=== PATIENT | male | born 1955 | race Caucasian/White ===

== ENCOUNTER 2023-11-27 12:37 | Observation (INO) ==
[2023-11-27] MEDS: OPTIRAY 320 125ml IV ONE (12:44)
--- NOTE | 2023-11-27 12:57 | CT Scan Report ---
HEAD CT NONCONTRAST CT DOSE: HISTORY: neuro deficit, acute stroke suspected TECHNIQUE: Multiaxial CT images of the head were performed without the use of intravenous contrast. A utomated exposure control was utilized for this study. A dose lowering technique was utilized adheri ng to the principles of ALARA. Comparison: None. Findings: The paranasal sinuses and mastoid air cells are clear. The calvarium and skull base are int act. The ventricles and sulci are within normal limits. There is no mass, hematoma, midline shift, or acute infarct. Cerebellar and bilateral basal ganglia calcifications are noted. Impression: No acute intracranial abnormality. ACT 112: Negative or not required by law. Electronically signed by: Heraclio Rios M.D. 11/27/2023 12:55 PM
--- NOTE | 2023-11-27 13:05 | Emergency Department Note ---
Impression & Plan Stroke-like symptoms ED Provider Note NAME: LIVIER MIKE AGE: 68 SEX: M : 1955 ARRIVES VIA: Ambulance INFORMANT: Patient, ED PROVIDER(S): Reinaldo Rae MD CHIEF COMPLAINT: Stroke alert HPI: This is a 68-year-old male presenting as a stroke alert. Reported the patient was driving today on the highway and noted difficulty in speaking. He noted to have a "aura" migraine type sensation and then had difficulty with speaking. He notes he called EMS and upon arrival he was unable to say basic words. During the EMS evaluation when patient was trying to say "migraine "he ended up saying "Ivan's ". This happened a few more times with different words where he was unable to adequately think of the right word he was right to say. While in route this improved, patient have a slow speech which is new for him. Otherwise he noticed no weakness to his upper or lower extremities. Patient does take Eliquis. Last known well is 11:20 AM, approximately 1 hour prior to EMS call. ROS: See above HPI for pertinent positives & negatives. A total of 10 systems reviewed and were otherwise negative. PAST MEDICAL HISTORY: See Below PAST SURGICAL HISTORY: See Below FAMILY HISTORY: See Below SOCIAL HISTORY: See Below HOME MEDICATIONS: See Below ALLERGIES: See Below VITALS: See Below PHYSICAL EXAMINATION: General: resting comfortably in no acute distress Head: Normocephalic and atraumatic Eyes: Normal inspection, extraocular muscles intact Ear, nose, throat: Normal external exam Neck: Normal range of motion Respiratory: lungs clear to auscultation bilaterally Cardiovascular: Regular rate/rhythm, no murmur GI: soft, nontender, no guarding or rebound Extremities: nontender, moves all extremities Neuro: The patient awake and alert, appropriately conversive, no focal deficits, slight left facial Skin: Warm, dry, and intact MEDICAL DECISION MAKING: This is a 68-year-old male presenting as a stroke alert. Patient expressive aphasia, aura/headache prior to the aphasia. Patient on Eliquis, unable to give tPA. Patient has baseline neurosymptoms including right upper and lower extremity sensation deficits which are from previous stroke. Has a possible new left-sided facial droop otherwise as well as slow speech. Currently no expressive aphasia. Patient is a low NIH score and is not a tPA candidate as previously discussed -Discussed with her she stroke neurologist on-call, she believes based on patient's current history, again not to be candidate and without LVO noted or acute stroke noted on CT imaging, not a candidate for thrombectomy. Can continue with stroke workup. Will treat migraine while working up stroke. -Upon reevaluation patient appears clinically similar, slow speech but otherwise no progressing or symptoms. No clear aphasia. -Laboratories reviewed showing no leukocytosis, no anemia, no clear electrolyte disturbances, LFTs and lipase within normal limits, troponin negative. No UTI noted on urinalysis -Patient admitted to hospitalist service under Dr. Gtz pending further stroke workup Differential diagnosis: Stroke, hemorrhage, migraine ER treatment provided: See below Diagnostics interpreted by me: ECG: ECG independently interpreted by me with atrial fibrillation, rate of 73, left axis deviation, normal CA, intraventricular conduction delay, normal QTc, no ST segment elevations consistent with STEMI criteria, T wave inversions in inferolateral leads Cardiac Monitoring: An order was placed for continuous cardiac monitoring. The monitor shows a rate of 73 with sinus rhythm. Laboratory studies: As stated above and show below. Imaging studies: See below. Past Med/Surg History Medical History (Updated 11/27/23 @ 16:28 by Reinaldo Rae MD) Dry eyes Depression History of stroke Atrial fibrillation CHF (congestive heart failure) Social History Smoking Status: Never smoker Beliefs That Will Affect Care: Spiritual and Cultural Feels Safe at Home: Yes Allergies Allergies Allergy/AdvReac Type Severity Reaction Status Date / Time shellfish derived Allergy Intermediate throat Verified 11/27/23 15:51 edema codeine Allergy Unknown Verified 11/27/23 15:51 crab Allergy Hives Verified 11/27/23 15:51 Home Meds Home Medications Medication Instructions Recorded Confirmed allopurinol 300 mg tablet 300 mg PO QPM 11/27/23 11/27/23 apixaban 5 mg tablet (Eliquis) 5 mg PO BID 11/27/23 11/27/23 cetirizine 10 mg tablet (Zyrtec) 10 mg PO DAILY 11/27/23 11/27/23 empagliflozin 10 mg tablet 1 mg PO QAM 11/27/23 11/27/23 (Jardiance) escitalopram oxalate 20 mg tablet 20 mg PO QAM 11/27/23 11/27/23 fluticasone propionate 50 1 spray intranasal DAILY 11/27/23 11/27/23 mcg/actuation nasal spray,suspension (Flonase Allergy Relief) ibuprofen 200 mg tablet (Advil) 100 - 200 mg PO DAILY 11/27/23 11/27/23 metoprolol succinate 50 mg 50 mg PO QAM 11/27/23 11/27/23 tablet,extended release 24 hr propylene glycol 0.6 % eye drops 1 drp ophthalmic (eye) DIRECTED 11/27/23 11/27/23 (Systane Complete) PRN Dry Eyes sacubitril 24 mg-valsartan 26 mg 1 tab PO BID 11/27/23 11/27/23 tablet (Entresto) simvastatin 20 mg tablet 20 mg PO QPM 11/27/23 11/27/23 spironolactone 25 mg tablet 25 mg PO QAM 11/27/23 11/27/23 Results & Data (ED) Vital Signs Vital Signs - 24 hr 11/27/23 12:49 11/27/23 13:00 11/27/23 13:01 Temperature 36.7 C Temperature Source Temporal Artery Scan Pulse Rate 63 67 66 Pulse Rate from SpO2 Sensor Respiratory Rate 18 20 Respiratory Depth Normal Blood Pressure 100/79 96/70 L Blood Pressure Mean 86 78 Blood Pressure Position Sitting Pulse Oximetry 95 95 Oxygen Delivery Method Room Air Room Air Sepsis Recent Fever Within 48 Hours No Sepsis New/Unexplained Change in Mental Status N/A Sepsis Action Taken by Nursing No Action Required 11/27/23 13:05 11/27/23 13:16 11/27/23 13:30 Temperature Temperature Source Pulse Rate 72 64 61 Pulse Rate from SpO2 Sensor Respiratory Rate 20 22 24 Respiratory Depth Blood Pressure 94/71 L 108/72 91/68 L Blood Pressure Mean 78 84 75 Blood Pressure Position Pulse Oximetry 94 94 95 Oxygen Delivery Method Room Air Room Air Room Air Sepsis Recent Fever Within 48 Hours Sepsis New/Unexplained Change in Mental Status Sepsis Action Taken by Nursing 11/27/23 14:00 11/27/23 14:30 11/27/23 14:43 Temperature Temperature Source Pulse Rate 66 54 L Pulse Rate from SpO2 Sensor 68 66 Respiratory Rate 20 23 Respiratory Depth Blood Pressure 102/70 Blood Pressure Mean 76 Blood Pressure Position Pulse Oximetry 96 95 Oxygen Delivery Method Sepsis Recent Fever Within 48 Hours Sepsis New/Unexplained Change in Mental Status Sepsis Action Taken by Nursing 11/27/23 14:43 11/27/23 15:00 11/27/23 15:30 Temperature Temperature Source Pulse Rate 63 66 68 Pulse Rate from SpO2 Sensor 70 61 67 Respiratory Rate 19 18 18 Respiratory Depth Blood Pressure Blood Pressure Mean Blood Pressure Position Pulse Oximetry 96 95 94 Oxygen Delivery Method Sepsis Recent Fever Within 48 Hours Sepsis New/Unexplained Change in Mental Status Sepsis Action Taken by Nursing 11/27/23 16:00 Temperature Temperature Source Pulse Rate 72 Pulse Rate from SpO2 Sensor 72 Respiratory Rate 18 Respiratory Depth Blood Pressure Blood Pressure Mean Blood Pressure Position Pulse Oximetry 94 Oxygen Delivery Method Sepsis Recent Fever Within 48 Hours Sepsis New/Unexplained Change in Mental Status Sepsis Action Taken by Nursing Laboratory Data 11/27/23 12:55 11/27/23 12:55 Lab Results 11/27/23 11/27/23 Range/Units 12:55 13:20 WBC 6.82 (4.8-10.8) K/ul RBC 4.91 (4.70-6.10) M/uL Hgb 16.3 (14.0-18.0) g/dl Hct 46.5 (42.0-52.0) % MCV 94.7 (80.0-100.0) fL MCH 33.2 (25.0-34.0) pg MCHC 35.1 (32.0-36.0) g/dL RDW Std Deviation 48.8 H (36.4-46.3) fL RDW Coeff of Rahat 14.0 (11.5-14.5) % Plt Count 142 (130-400) K/uL MPV 10.0 (9.4-12.4) fL Immature Gran % (Auto) 0.6 % Neut % (Auto) 64.8 % Lymph % (Auto) 24.0 % Delta % (Auto) 8.9 % Eos % (Auto) 1.3 % Baso % (Auto) 0.4 % Neut # (Auto) 4.41 (1.40-6.50) K/uL Lymph # (Auto) 1.64 (1.20-3.40) K/uL Delta # (Auto) 0.61 H (0.11-0.59) K/uL Eos # (Auto) 0.09 (0.00-0.50) K/uL Baso # (Auto) 0.03 (0.00-0.20) K/uL Immature Gran # (Auto) 0.04 (0.01-0.20) K/uL PT 10.8 (9.0-12.0) Seconds INR 1.0 (0.9-1.1) APTT 29 (21-31) Seconds PTT Ratio 1.0 Sodium 134 L (136-145) mmol/L Potassium 3.9 (3.5-5.1) mmol/L Chloride 105 (98-107) mmol/L Carbon Dioxide 23 (21-32) mmol/L Anion Gap 6 (3-11) BUN 18 (6-23) mg/dl Creatinine 1.09 (0.6-1.4) mg/dl Est Cr Clr Drug Dosing 76.7 ml/min Est GFR ( Amer) 79.3 ml/min Est GFR (Non-Af Amer) 68.4 ml/min BUN/Creatinine Ratio 16.5 (10-20) Glucose 124 H (70-99(Fasting)) mg/dl Calcium 8.8 (8.6-10.3) mg/dl Magnesium 2.2 (1.7-2.4) mg/dl Total Bilirubin 0.7 (0.2-1.0) mg/dl AST 19 (13-39) U/L ALT 23 (7-52) U/L Alkaline Phosphatase 69 (34-104) U/L Troponin I High Sens 4.0 (0-20) pg/ml Total Protein 6.0 (6.0-8.3) gm/dl Albumin 3.7 (3.4-5.0) gm/dl Globulin 2.3 L (2.5-4.0) gm/dl Albumin/Globulin Ratio 1.6 (0.9-2) Urine Color Yellow Urine Appearance Clear (Clear) Urine pH 6.5 (4.5-7.5) Ur Specific [place] 1.021 (1.000-1.030) Urine Protein Negative (Negative) Urine Glucose (UA) 3+ H (Negative) Urine Ketones Negative (Negative) Urine Blood Negative (Negative) Urine Nitrite Negative (Negative) Urine Bilirubin Negative (Negative) Urine Urobilinogen Negative (Negative) Ur Leukocyte Esterase Negative (Negative) Administered Medications Discontinued Medications Diphenhydramine HCl (Diphenhydramine 50 Mg/Ml Vial) 25 mg IV NOW STA Stop: 11/27/23 14:19 Last Admin: 11/27/23 14:38 Dose: 25 mg Documented By: DEJAH Sodium Chloride (Nss) 1,000 mls @ 999 mls/hr IV .Q1H1M ONE Stop: 11/27/23 15:18 Last Admin: 11/27/23 14:38 Dose: 999 mls/hr Documented By: DEJAH Prochlorperazine 10 mg/ (Syringe) 10 mls @ 5 mls/min IV ONE ONE Stop: 11/27/23 14:19 Last Admin: 11/27/23 14:38 Dose: 5 mls/min Documented By: DEJAH Ioversol (Optiray 320 125ml) 116 ml IV ONCE ONE Stop: 11/27/23 12:44 Last Admin: 11/27/23 12:44 Dose: 116 ml Documented By: AKHIL Imaging Data Radiologist's Impression: Head CT 11/27/23 12:[address] DOSE: HISTORY: neuro deficit, acute stroke suspected TECHNIQUE: Multiaxial CT images of the head were performed without the use of intravenous contrast. Automated exposure control was utilized for this study. A dose lowering technique was utilized adhering to the principles of ALARA. Comparison: None. Findings: The paranasal sinuses and mastoid air cells are clear. The calvarium and skull base are intact. The ventricles and sulci are within normal limits. There is no mass, hematoma, midline shift, or acute infarct. Cerebellar and bilateral basal ganglia calcifications are noted. Impression: No acute intracranial abnormality. ACT 112: Negative or not required by law. Electronically signed by: Heraclio Rios M.D. 11/27/2023 12:55 PM Head CTA 11/27/23 12:30 CT angio head w con CLINICAL HISTORY: 68 years-old Male with neuro deficit, acute stroke suspected. Acute stroke like symptoms COMPARISON STUDY: Head CT and CTA neck study is of same day TECHNIQUE: Following the IV administration of 116 cc of Optiray, CT angiogram of the brain was performed from the skull base to the vertex. Images are reviewed in the axial, sagittal, and coronal planes. 3-D MIPS images are created and assessed. IV contrast was administered without complication. All measurements were obtained according to NASCET criteria. A dose lowering technique was utilized adhering to the principles of ALARA. FINDINGS: CT ANGIOGRAM OF THE BRAIN: Calcifications of the dentate nuclei incidentally noted. The imaged bilateral internal carotid arteries are patent. The bilateral anterior and middle cerebral arteries are also patent. The vertebrobasilar system and posterior cerebral arteries are widely patent. There is no aneurysm, high-grade stenosis, or proximal branch occlusion identified. Dural sinuses appear patent. Severe degeneration at C1-C2, notably on the left. Right-sided scleral banding. IMPRESSION: 1. Unremarkable CTA of the head. 2. No abnormal intracranial enhancement. ACT 112: Negative or not required by law. The above report was generated using voice recognition software. It may contain grammatical, syntax or spelling errors. Electronically signed by: Flynn Garcia M.D. 11/27/2023 1:13 PM Neck CTA 11/27/23 12:30 CT ANGIOGRAM OF THE NECK CLINICAL HISTORY: Neurological deficit. Stroke like symptoms. COMPARISON STUDY: No priors. TECHNIQUE: Following the IV administration of 116 of Optiray 320, CT angiogram of the neck was performed from the aortic arch to the skull base. Images are reviewed in the axial, sagittal, and coronal planes. 3-D MIPS images are created and assessed. IV contrast was administered without complication. All measurements were calculated based on NASCET criteria. A dose lowering technique was utilized adhering to the principles of ALARA. CT DOSE: 1358.36 mGy.cm FINDINGS: Thoracic aorta: Visualized portions of the thoracic aorta are normal in caliber. The aortic arch demonstrates standard 3-vessel anatomy. Right carotid arterial system: The right common carotid artery is widely patent, as are the right internal and external carotid arteries. Left carotid arterial system: The left common carotid artery is widely patent, as are the left internal and external carotid arteries. Vertebral arteries: Widely patent bilaterally noting right sided dominance. Subclavian arteries: Widely patent bilaterally. Intracranial vasculature: The visualized intracranial vessels of the skull base are patent. Jugular veins: Widely patent bilaterally. Brain parenchyma: The visualized brain parenchyma the skull base is within normal limits. Lung apices: Partially visualized upper lobe lung parenchyma appears clear. Soft tissues: The visualized pharyngeal soft tissues are normal in appearance noting angiographic phase technique. The oropharyngeal airway appears widely patent. The thyroid gland is mildly enlarged and heterogeneous. The salivary glands are normal in appearance. No cervical lymphadenopathy is seen. A pacemaker is present in the left upper chest wall. Skeletal structures: The skeletal structures are osteopenic. The visualized calvarium at the skull base appears intact. The imaged cervical spine is maintained noting multilevel spondylosis. The patient is status post midline sternotomy. There is chronic posttraumatic deformity of the right clavicle. Sinuses and mastoids: The visualized paranasal sinuses are clear. The mastoid air cells are well pneumatized. IMPRESSION: Unremarkable CT angiogram of the neck. ACT 112: Negative or not required by law. Electronically signed by: Jared Salmeron M.D. 11/27/2023 1:05 PM Discharge Plan Visit Data Chief Complaint: Stroke Alert Stated Complaint: STROKE ALERT ED Provider: Reinaldo Rae Discharge Problem: Stroke-like symptoms Discharge Instructions Interventions: ED Discharge Assessment Last Done: 11/27/23 16:25 Forms Stand Alone Forms: [facility] Inbox[employer] Prescriptions Prescriptions: No Action cetirizine [Zyrtec] 10 mg Tablet 10 mg PO DAILY metoprolol succinate 50 mg tablet extended release 24 hr 50 mg PO QAM spironolactone 25 mg tablet 25 mg PO QAM simvastatin 20 mg tablet 20 mg PO QPM ibuprofen [Advil] 200 mg Tablet 100 - 200 mg PO DAILY allopurinol 300 mg tablet 300 mg PO QPM fluticasone propionate [Flonase Allergy Relief] 50 mcg/actuation [place],Suspension 1 spray INTRANASAL DAILY Rx Instructions: administer into each nostril escitalopram oxalate 20 mg tablet 20 mg PO QAM Systane Complete 0.6 % Drops 1 drp OPHTHALMIC (EYE) DIRECTED PRN (Reason: Dry Eyes) Eliquis 5 mg tablet 5 mg PO BID Jardiance 10 mg tablet 1 mg PO QAM Entresto 24-26 mg tablet 1 tab PO BID Referrals Referrals: PCP,NO [Physician] -
--- NOTE | 2023-11-27 13:07 | CT Scan Report ---
CT ANGIOGRAM OF THE NECK CLINICAL HISTORY: Neurological deficit. Stroke like symptoms. COMPARISON STUDY: No priors. TECHNIQUE: Following the IV administration of 116 of Optiray 320, CT angiogram of the neck was perfor med from the aortic arch to the skull base. Images are reviewed in the axial, sagittal, and coronal p lanes. 3-D MIPS images are created and assessed. IV contrast was administered without complication. A ll measurements were calculated based on NASCET criteria. A dose lowering technique was utilized adh ering to the principles of ALARA. CT DOSE: 1358.36 mGy.cm FINDINGS: Thoracic aorta: Visualized portions of the thoracic aorta are normal in caliber. The aortic arch demo nstrates standard 3-vessel anatomy. Right carotid arterial system: The right common carotid artery is widely patent, as are the right int ernal and external carotid arteries. Left carotid arterial system: The left common carotid artery is widely patent, as are the left internet marketing intern al and external carotid arteries. Vertebral arteries: Widely patent bilaterally noting right sided dominance. Subclavian arteries: Widely patent bilaterally. Intracranial vasculature: The visualized intracranial vessels of the skull base are patent. Jugular veins: Widely patent bilaterally. Brain parenchyma: The visualized brain parenchyma the skull base is within normal limits. Lung apices: Partially visualized upper lobe lung parenchyma appears clear. Soft tissues: The visualized pharyngeal soft tissues are normal in appearance noting angiographic pha se technique. The oropharyngeal airway appears widely patent. The thyroid gland is mildly enlarged an d heterogeneous. The salivary glands are normal in appearance. No cervical lymphadenopathy is seen. A pacemaker is present in the left upper chest wall. Skeletal structures: The skeletal structures are osteopenic. The visualized calvarium at the skull ba se appears intact. The imaged cervical spine is maintained noting multilevel spondylosis. The patient is status post midline sternotomy. There is chronic posttraumatic deformity of the right clavicle. Sinuses and mastoids: The visualized paranasal sinuses are clear. The mastoid air cells are well pneu matized. IMPRESSION: Unremarkable CT angiogram of the neck. ACT 112: Negative or not required by law. Electronically signed by: Jared Salmeron M.D. 11/27/2023 1:05 PM
--- NOTE | 2023-11-27 13:14 | CT Scan Report ---
CT angio head w con CLINICAL HISTORY: 68 years-old Male with neuro deficit, acute stroke suspected. Acute stroke like symptoms COMPARISON STUDY: Head CT and CTA neck study is of same day TECHNIQUE: Following the IV administration of 116 cc of Optiray, CT angiogram of the brain was perfor med from the skull base to the vertex. Images are reviewed in the axial, sagittal, and coronal planes . 3-D MIPS images are created and assessed. IV contrast was administered without complication. All me asurements were obtained according to NASCET criteria. A dose lowering technique was utilized adherin g to the principles of ALARA. FINDINGS: CT ANGIOGRAM OF THE BRAIN: Calcifications of the dentate nuclei incidentally noted. The imaged bilateral internal carotid arteri es are patent. The bilateral anterior and middle cerebral arteries are also patent. The vertebrobasil ar system and posterior cerebral arteries are widely patent. There is no aneurysm, high-grade stenosi s, or proximal branch occlusion identified. Dural sinuses appear patent. Severe degeneration at C1-C2, notably on the left. Right-sided scleral banding. IMPRESSION: 1. Unremarkable CTA of the head. 2. No abnormal intracranial enhancement. ACT 112: Negative or not required by law. The above report was generated using voice recognition software. It may contain grammatical, syntax o r spelling errors. Electronically signed by: Flynn Garcia M.D. 11/27/2023 1:13 PM
[2023-11-27 13:31] LABS: Basophils # (auto) 0.03 K/uL (0.00-0.20); Basophils % (auto) 0.4 %; Eosinophils # (auto) 0.09 K/uL (0.00-0.50); Eosinophils % (auto) 1.3 %; Hematocrit (blood only) 46.5 % (42.0-52.0); Hemoglobin 16.3 g/dl (14.0-18.0); Immature Granulocytes # (auto) 0.04 K/uL (0.01-0.20); Immature Granulocytes % (auto) 0.6 %; Lymphocytes # (auto) 1.64 K/uL (1.20-3.40); Mean Corpuscular Hemoglobin 33.2 pg (25.0-34.0); Mean Corpuscular Hgb Conc 35.1 g/dL (32.0-36.0); Mean Corpuscular Volume 94.7 fL (80.0-100.0); Monocytes # (auto) 0.61 K/uL (0.11-0.59); Monocytes % (auto) 8.9 %; Neutrophils # (auto) 4.41 K/uL (1.40-6.50); Neutrophils % (auto) 64.8 %; Platelet Count 142 K/uL (130-400); RDW Standard Deviation 48.8 fL (36.4-46.3); Red Blood Count 4.91 M/uL (4.70-6.10); White Blood Count 6.82 K/ul (4.8-10.8)
[2023-11-27 13:35] LABS: Appearance Urine Clear (Clear); Bilirubin Urine Negative (Negative); Blood Urine Negative (Negative); Color Urine Yellow; Glucose Urine UA 3+ (Negative); Ketones Urine Negative (Negative); Leukocyte Esterase Urine Negative (Negative); Nitrite Urine Negative (Negative); Protein Urine Negative (Negative); Specific Gravity Urine 1.021 (1.000-1.030); Urobilinogen Urine Negative (Negative); pH Urine 6.5 (4.5-7.5)
[2023-11-27 13:39] LABS: Albumin Globulin Ratio 1.6 (0.9-2); Albumin Level 3.7 gm/dl (3.4-5.0); BUN Creatinine Ratio 16.5 (10-20); Bilirubin,Total 0.7 mg/dl (0.2-1.0); Calcium 8.8 mg/dl (8.6-10.3); Creatinine Clr Calc Pharmacy 76.7 ml/min; Est GFR (African American) 79.3 ml/min; Est GFR (Non-African American) 68.4 ml/min; Globulin 2.3 gm/dl (2.5-4.0); Magnesium 2.2 mg/dl (1.7-2.4); Potassium 3.9 mmol/L (3.5-5.1)
[2023-11-27 13:53] LABS: Partial Thromboplastin Time 29 Seconds (21-31); Prothrombin Time 10.8 Seconds (9.0-12.0)
--- NOTE | 2023-11-27 14:35 | History & Physical Report ---
Date of Service November 27, 2023 Assessment & Plan (1) Stroke-like symptoms: Plan: Visual aura, worsening slurred speech, and expressive aphasia developed around 1100 on 11/27 Not a TNKase candidate given on Eliquis New focal expressive aphasia, however not dysarthric No leukocytosis; afebrile Glucose [address] revealed NAF Head/neck CTA unremarkable Brain MRI ordered, pending; spoke to MRI; due to patient's pacemaker and the need for a radiology nurse present, patient will not be able to get MRI until 11/28 Echocardiogram with bubble study ordered, pending Will hold Eliquis until MRI comes back Keep patient n.p.o. 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 CBC, BMP, fasting lipid panel, A1c (2) CHF (congestive heart failure): Plan: Echocardiogram (as above) Continue Entresto, Jardiance, spironolactone (3) Atrial fibrillation: Plan: Pacemaker placed in November 2022, per patient EKG of undetermined rhythm at 73 bpm; QTc 456 (4) History of stroke: Plan: Left thalamic CVA in 2012 Per patient's , he was on Plavix temporarily in 2011, however this was discontinued when he started on Eliquis (5) Depression: Plan: Continue escitalopram (6) Dry eyes: Plan: Continue Systane drops as needed Plan Disposition: Admit to PCU telemetry Full code Keep n.p.o. pending dysphagia screen, then advance to AHA diet as tolerated VTE PPx: SCDs (hold Eliquis until MRI comes back) History of Present Illness Chief Complaint: Strokelike symptoms Primary Care Provider: Sylvie Schwarz is a pleasant 68-year-old male with PMH of left thalamic CVA in 2011 (with residual right-sided deficits), CHF, atrial fibrillation, depression, gouty arthritis, dry eyes, and HLD. He is presented for strokelike symptoms that developed on 11/27. Patient was in the passenger seat, driving with his (Nydia) to a in [place], when he developed a visual aura, followed by slower, slurred speech and expressive aphasia around 1100 on 11/27. He reports that he could not remember things, such as the name of his doctor. When EMS arrived, he also noted that he was using the wrong words (instead of saying he had a history of migraines, he said he had a history of "microwaves". Of note, patient had a left thalamic stroke in 2011 with residual left facial droop and right-sided neuropathy. He denies any recent injuries to the head or neck. He denies tobacco use, alcohol use, and recreational drug use. Hx of retinal detac hment in right eye. Hx of migraines with aura; patient does not take medications for this, when they come on he says he drinks black coffee and lays down for an hour until they pass. Patient was recently sick with a stomach bug up until Saturday 11/25; he had a low-grade fever (and took some Tylenol) as well as diarrhea which has resolved. Patient worked out yesterday for the first time in a month; walking on a treadmill. He took all of his regular morning medications. No recent change in medications; most recent change was decreasing metoprolol from 100 mg to 50 mg in February 2023 due to dizzy spells. Patient had a pacemaker placed in November 2022, with Dr. Luanne Estrada (electrophysiology). His PCP is Sylvie Watson at [facility]. Patient has been hypotensive in the ED; vitals otherwise stable. ED course: Benadryl 25 mg IV Prochlorperazine 10 mg IV NSS 1000 mL IV ROS: Patient endorses RHODES (like a migraine aura), aura, confusion, L facial droop (which may be residual from last stroke), R-sided numbness/tingling (residual from prior stroke), diarrhea (resolved). Patient denies fever, chills, nightsweats, fainting, neck stiffness, cough, congestion, loss of vision, change in hearing, chest pain, chest palpitations, SOB, cough, abdominal pain, N/V, dysuria, burning with urination, no pain in right/left UE or LE. PMHx: Patient endorses hx of migraines with aura, Marfan's syndrome, and CVA Patient denies [place], DVT/PE, diabetes, or cancer Allergies Allergy/AdvReac Type Severity Reaction Status Date / Time shellfish derived Allergy Intermediate throat Verified 11/27/23 15:51 edema codeine Allergy Unknown Verified 11/27/23 15:51 crab Allergy Hives Verified 11/27/23 15:51 Home Medications Medication Instructions Recorded Confirmed Type allopurinol 300 mg tablet 300 mg PO QPM 11/27/23 11/27/23 History apixaban 5 mg tablet (Eliquis) 5 mg PO BID 11/27/23 11/27/23 History cetirizine 10 mg tablet (Zyrtec) 10 mg PO DAILY 11/27/23 11/27/23 History empagliflozin 10 mg tablet 1 mg PO QAM 11/27/23 11/27/23 History (Jardiance) escitalopram oxalate 20 mg tablet 20 mg PO QAM 11/27/23 11/27/23 History fluticasone propionate 50 1 spray intranasal DAILY 11/27/23 11/27/23 History mcg/actuation nasal spray,suspension (Flonase Allergy Relief) ibuprofen 200 mg tablet (Advil) 100 - 200 mg PO DAILY 11/27/23 11/27/23 History metoprolol succinate 50 mg 50 mg PO QAM 11/27/23 11/27/23 History tablet,extended release 24 hr propylene glycol 0.6 % eye drops 1 drp ophthalmic (eye) DIRECTED 11/27/23 11/27/23 History (Systane Complete) PRN Dry Eyes sacubitril 24 mg-valsartan 26 mg 1 tab PO BID 11/27/23 11/27/23 History tablet (Entresto) simvastatin 20 mg tablet 20 mg PO QPM 11/27/23 11/27/23 History spironolactone 25 mg tablet 25 mg PO QAM 11/27/23 11/27/23 History Past Med/Surg History Medical History (Updated 11/27/23 @ 16:28 by Reinaldo Rae MD) Dry eyes Depression History of stroke Atrial fibrillation CHF (congestive heart failure) Social History Smoking Status: Never smoker Hx Alcohol Use: No Hx Substance Use: No Preferred Language: Maltese Communication Ability: Effective Stone Driller Required: No Beliefs That Will Affect Care: None Current Living Situation: Spouse and Family Current Living Situation Comment: Son is home at this time. Other Information That Helps Us Care for You: No Feels Safe at Home: Yes Safety Concerns: Feels Safe At This Time Assistive Devices: Glasses Review of Systems Review of Systems: See HPI above Physical Exam Physical Exam: General: no acute distress; pleasant affect; non-toxic appearing; well- nourished; cooperative HEENT: normocephalic, atraumatic; no scleral icterus; PERRLA w/ EOMs intact; right-sided nystagmus; moist mucus membrane; vision and hearing grossly intact; hearing aids in place; patient demonstrates the ability to protrude and wiggle tongue; mild left-sided facial droop (which patient reports is residual); eyebrow raise intact and symmetric bilaterally; sensation intact, symmetric in the face bilaterally assessed via light touch Neck: supple; no lymphadenopathy; trachea midline; patient demonstrates the ability to raise shoulders against resistance; patient can rotate neck left and right without dizziness Skin: warm, dry without signs of tenting; no cyanosis; no rashes, bruising, lesions, or erythema noted CV: chest wall NTP; RRR; S1/S2 normal; no murmurs/rubs/gallops; pulses intact and symmetric at radial, DP, and PT Lungs: no acute respiratory distress; symmetrical chest wall expansion; clear breath sounds across all lung wilde w/o adventitious sounds; no wheezing ABD: Soft, NTP; BS present; no rebound/guarding; no ascites; no distention; negative CVA tenderness MSK: no tics or fasciculations; no edema noted in the LEs b/l, nonerythematous; +5/5 sanitarian strength; full active ROM; good strength in the LEs when lifting off the bed supine at the hip Neuro: A&Ox3; normal mood and affect; slurred speech; negative pronator drift; decreased sensation in the right side LEs and UEs compared to the left Results & Data Results & Data Vital Signs (Past 12 Hours) Vital Signs Temp Pulse Resp BP Pulse Ox O2 Del Method 11/27/23 13:30 61 24 91/68 L 95 Room Air 11/27/23 13:16 64 22 108/72 94 Room Air 11/27/23 13:05 72 20 94/71 L 94 Room Air 11/27/23 13:01 66 11/27/23 13:00 67 20 96/70 L 95 Room Air 11/27/23 12:49 36.7 C 63 18 100/79 95 Room Air Laboratory Results Abnormal lab results 11/27/23 11/27/23 Range/Units 12:55 13:20 RDW Std Deviation 48.8 H (36.4-46.3) fL [place] # (Auto) 0.61 H (0.11-0.59) K/uL Sodium 134 L (136-145) mmol/L Glucose 124 H (70-99(Fasting)) mg/dl Globulin 2.3 L (2.5-4.0) gm/dl Urine Glucose (UA) 3+ H (Negative) Diagnostic Findings Head CT 11/27/23 12:[address] DOSE: HISTORY: neuro deficit, acute stroke suspected TECHNIQUE: Multiaxial CT images of the head were performed without the use of intravenous contrast. Automated exposure control was utilized for this study. A dose lowering technique was utilized adhering to the principles of ALARA. Comparison: None. Findings: The paranasal sinuses and mastoid air cells are clear. The calvarium and skull base are intact. The ventricles and sulci are within normal limits. There is no mass, hematoma, midline shift, or acute infarct. Cerebellar and bilateral basal ganglia calcifications are noted. Impression: No acute intracranial abnormality. ACT 112: Negative or not required by law. Electronically signed by: Heraclio Rios M.D. 11/27/2023 12:55 PM Head CTA 11/27/23 12:30 CT angio head w con CLINICAL HISTORY: 68 years-old Male with neuro deficit, acute stroke suspected. Acute stroke like symptoms COMPARISON STUDY: Head CT and CTA neck study is of same day TECHNIQUE: Following the IV administration of 116 cc of Optiray, CT angiogram of the brain was performed from the skull base to the vertex. Images are reviewed in the axial, sagittal, and coronal planes. 3-D MIPS images are created and assessed. IV contrast was administered without complication. All measurements were obtained according to NASCET criteria. A dose lowering technique was utilized adhering to the principles of ALARA. FINDINGS: CT ANGIOGRAM OF THE BRAIN: Calcifications of the dentate nuclei incidentally noted. The imaged bilateral internal carotid arteries are patent. The bilateral anterior and middle cerebral arteries are also patent. The vertebrobasilar system and posterior cerebral arteries are widely patent. There is no aneurysm, high-grade stenosis, or proximal branch occlusion identified. Dural sinuses appear patent. Severe degeneration at C1-C2, notably on the left. Right-sided scleral banding. IMPRESSION: 1. Unremarkable CTA of the head. 2. No abnormal intracranial enhancement. ACT 112: Negative or not required by law. The above report was generated using voice recognition software. It may contain grammatical, syntax or spelling errors. Electronically signed by: Flynn Garcia M.D. 11/27/2023 1:13 PM Neck CTA 11/27/23 12:30 CT ANGIOGRAM OF THE NECK CLINICAL HISTORY: Neurological deficit. Stroke like symptoms. COMPARISON STUDY: No priors. TECHNIQUE: Following the IV administration of 116 of Optiray 320, CT angiogram of the neck was performed from the aortic arch to the skull base. Images are reviewed in the axial, sagittal, and coronal planes. 3-D MIPS images are created and assessed. IV contrast was administered without complication. All measurements were calculated based on NASCET criteria. A dose lowering technique was utilized adhering to the principles of ALARA. CT DOSE: 1358.36 mGy.cm FINDINGS: Thoracic aorta: Visualized portions of the thoracic aorta are normal in caliber. The aortic arch demonstrates standard 3-vessel anatomy. Right carotid arterial system: The right common carotid artery is widely patent, as are the right internal and external carotid arteries. Left carotid arterial system: The left common carotid artery is widely patent, as are the left internal and external carotid arteries. Vertebral arteries: Widely patent bilaterally noting right sided dominance. Subclavian arteries: Widely patent bilaterally. Intracranial vasculature: The visualized intracranial vessels of the skull base are patent. Jugular veins: Widely patent bilaterally. Brain parenchyma: The visualized brain parenchyma the skull base is within normal limits. Lung apices: Partially visualized upper lobe lung parenchyma appears clear. Soft tissues: The visualized pharyngeal soft tissues are normal in appearance noting angiographic phase technique. The oropharyngeal airway appears widely patent. The thyroid gland is mildly enlarged and heterogeneous. The salivary glands are normal in appearance. No cervical lymphadenopathy is seen. A pacemaker is present in the left upper chest wall. Skeletal structures: The skeletal structures are osteopenic. The visualized calvarium at the skull base appears intact. The imaged cervical spine is maintained noting multilevel spondylosis. The patient is status post midline sternotomy. There is chronic posttraumatic deformity of the right clavicle. Sinuses and mastoids: The visualized paranasal sinuses are clear. The mastoid air cells are well pneumatized. IMPRESSION: Unremarkable CT angiogram of the neck. ACT 112: Negative or not required by law. Electronically signed by: Jared Salmeron M.D. 11/27/2023 1:05 PM Code Status & VTE Plan Code Status Full code VTE Prophylaxis Plan VTE Prophylaxis will be ordered: Yes Supervising Physician Co-Signing Physician Notes Patient seen and examined, chart reviewed, case discussed with [] and I agree with the assessment and plan as above except as otherwise noted Labs and images reviewed 68yo M who was driving to a in [place] when he developed sx of aphasia while in the car. Has a hx oc CVA with residual facial droop. Aphasia and confusion is new for him .Most prominent sx was expressive bu tnot receptive aphasia (having trouble finding and using correct words, but without dysarthia). Has a hx of migraines with aura. Did have a visual aura similar to prior with migraines. No visual field cuts, some R gaze bilateral nystagmus which extinguishes. Patient reports he was previously on Plavix after concern for CVA leading to his facial droop, this was stopped in 2018 when his Eliquis was started for A-fib prophylaxis.. At bedside he is clear that his symptoms were expressive dysarthria and difficulty with word salad/word finding, but he had no issues with speech and was not dysarthric per his .. No left or right-sided strength deficits that were new, does have some right-sided paresthesias chronically. At time of bedside reassessment he reports he is tired, but feels 90% back to normal was 10% being just fatigue. Denies recent heart failure exacerbation, but does have a history of CHF on Entresto. Denies chest pain/chest pressure. At bedside assessment speech is fluent, no dysarthria, left facial droop remains present, right sanitarian strength/ankle/dorsiflexion is intact, vision is without field cuts and pupils are equal and reactive to light. Agree with admission diagnosis includes complex migraine and CVA. Patient is not a TNKase candidate regardless of symptoms due to being on Eliquis. This is temporarily held pending MRI results.. CTA does not show any large vessel occlusion. antiplatelet treatment was discussed with neuro, recommended to defer this at time of admission and aspirin/Plavix load was not recommended. Recommend MRI for evaluation of stroke pathology, and if negative can resume Eliquis in 24 hours. Admit for stroke monitoring and workup. Lipid panel pending, Entresto/spironolactone temporarily held pending MRI results for permissive parameters and borderline hypotension. Metoprolol continued for a.m. dosing. Agree with assessment and management above PG Care Time/CCT Total # of Minutes Spent Total Time Spent with Patient: Total time spent is greater than 50% in coordination of care (as documented) at patient's floor/unit and/or counseling patient: [place] [address] INT INP/OBS CARE 3/75MIN Patient Type New Medical Decision Making High Complexity Diagnoses Stroke-like symptoms R29.90 CHF (congestive heart failure) I50.9 Atrial fibrillation I48.91 History of stroke Z86.73 Depression F32.A Dry eyes H04.123
[2023-11-27] MEDS: SODIUM CHLORIDE 0.9% 1,000 ML IV ONE (14:38)
[2023-11-27] MEDS: PROCHLORPERAZINE 10 MG in SYRINGE 8 ML IV ONE (14:38)
[2023-11-27] MEDS: diphenhydrAMINE 50 MG/ML VIAL IV STA (14:38)
[2023-11-27] MEDS ORDERED: ONDANSETRON INJ 2 MG/ML 2 ML VIAL IV PRN (17:14)
[2023-11-27] MEDS ORDERED: PHARMACIST DISCHARGE MED REC CONSULT PRN (17:14)
[2023-11-27] MEDS ORDERED: ACETAMINOPHEN 325 MG TAB PO PRN (17:14)
[2023-11-27] MEDS ORDERED: ARTIFICIAL TEARS OP PRN (17:18)
[2023-11-27] MEDS: SIMVASTATIN 20 MG TAB PO SCH (21:00)
[2023-11-27] MEDS: allopurinoL 300 MG TAB PO SCH (21:00)
[2023-11-27] MEDS ORDERED: VALSARTAN/SACUBITRIL 26/24MG TAB PO SCH (21:00)
[2023-11-28 06:43] LABS: Basophils # (auto) 0.02 K/uL (0.00-0.20); Basophils % (auto) 0.3 %; Eosinophils # (auto) 0.12 K/uL (0.00-0.50); Eosinophils % (auto) 1.6 %; Hemoglobin 16.3 g/dl (14.0-18.0); Immature Granulocytes # (auto) 0.04 K/uL (0.01-0.20); Immature Granulocytes % (auto) 0.5 %; Lymphocytes # (auto) 1.84 K/uL (1.20-3.40); Lymphocytes % (auto) 24.1 %; Mean Corpuscular Hemoglobin 32.9 pg (25.0-34.0); Mean Platelet Volume 10.1 fL (9.4-12.4); Monocytes % (auto) 6.6 %; Neutrophils # (auto) 5.11 K/uL (1.40-6.50); Neutrophils % (auto) 66.9 %; Platelet Count 144 K/uL (130-400); RDW Coefficient of Variation 13.9 % (11.5-14.5); RDW Standard Deviation 50.2 fL (36.4-46.3); Red Blood Count 4.95 M/uL (4.70-6.10); White Blood Count 7.63 K/ul (4.8-10.8)
[2023-11-28 06:52] LABS: BUN Creatinine Ratio 14.8 (10-20); Calcium 8.8 mg/dl (8.6-10.3); Chol HDL Ratio 3.6 (0-5); Creatinine Clr Calc Pharmacy 64.5 ml/min; Est GFR (African American) 65.3 ml/min; Est GFR (Non-African American) 56.3 ml/min; Potassium 4.5 mmol/L (3.5-5.1)
[2023-11-28 07:19] LABS: Estimated Average Glucose 120 mg/dl; Hemoglobin A1C 5.8 % (4.5-5.6)
--- NOTE | 2023-11-28 09:01 | Neurology Consultation ---
Date of Consultation November 28, 2023 Assessment & Plan (1) Stroke-like symptoms: (2) Complicated migraine: Plan 68-year-old male with a history of migraine with aura, ocular migraine, atrial fibrillation on Eliquis, cardiac pacer, presenting with one of his usual migrainous auras yesterday, while on his way to a with his spouse, followed by development of associated aphasia, but without hemiparesis. Initial CTA of the head and neck and CT of the head unremarkable. Thrombolytics not administered as patient on Eliquis. Symptoms resolved this morning. Although I suspect patient's clinical presentation is most consistent with complicated migraine, given his history of prior stroke and atrial fibrillation, recurrent stroke/TIA cannot be excluded. Would recommend MRI of the brain, transthoracic echocardiogram. Consultations with PT/OT/speech therapy. May r esume Eliquis if no evidence of hemorrhage on brain MRI. Would not add an antiplatelet medication at this time. Continue monitoring of patient's blood pressure, his pressure has been running low normal. May continue with metoprolol as prescribed. Patient's lipids appear to be well-controlled with simvastatin, LDL 59 (less than 70). May continue with simvastatin at the current dosage. Patient's hemoglobin A1c is 5.8, marginally elevated but considered increased risk for diabetes mellitus. Will need ongoing monitoring as an outpatient. Patient should probably reestablish with a neurologist as an outpatient, although he is not from this area. He does endorse a history of fairly frequent, recurrent, ocular migraine and he may benefit from a trial of preventative medication, either verapamil, topiramate, or amitriptyline. Please contact me if you have any questions. History of Present Illness Reason for Consultation: stroke like sxs Requesting Physician: Miguel Angel Attending Physician: Sancho Perez MD History of Present Illness The patient is a 68-year-old male who presented to the emergency department yesterday afternoon for further assessment of difficulty speaking. He had been driving to a with his spouse at the time of symptom onset. He reports that his initial symptom was of a visual aura, vision disturbance, that he typically experiences several times per month, lasting 20 to 30 minutes, sometimes followed by low-grade headache. He endorses a history of migraine with aura beginning as a teenager. Lately, his migraine symptoms have consisted of recurring visual aura without much headache, however. Although he initially thought he was having one of his migrainous episodes, he then noticed difficulty speaking which seem to be a new symptom for him. He recalled having difficulty with word finding and making some unusual word substitutions as well. He denied experiencing any difficulty with language comprehension. He does not recall having any associated weakness of the arms or legs or facial droop with this episode. Given the above symptoms, he came to the emergency department for further evaluation. The patient does endorse a history of stroke that occurred in 2011 in the context of a mitral valve replacement surgery done about 2 years prior. History also notable for atrial fibrillation, continues to follow with cardiology affiliated with [facility] and [facility]. He indicates that he has been having runs of atrial fibrillation lately and there are potential plans for an ablation procedure. Patient also has a cardiac pacer. He has been taking Eliquis and has been compliant with this medication. He denies experiencing significant headache with this recent episode. He has been normotensive to hyp otensive in the context of this hospitalization. He had an unremarkable CT of the head and CT angiogram of the head and neck. I did independently review these images. There is evidence of physiologic calcifications within both cerebellar hemispheres in the bilateral basal ganglia and pineal gland. There is no hemorrhage or acute process, no hydrocephalus. No evidence of chronic stroke. No significant vascular lesion identified on CTA of the head or neck. This morning, the patient reports complete resolution of his symptoms. Denies any lingering difficulty with vision, no headache, no difficulty with speech, no new or focal weakness of the limbs. He does indicate that he has some chronic mild sensory disturbance affecting the right arm and leg related to his stroke that occurred in 2011. Allergies Allergy/AdvReac Type Severity Reaction Status Date / Time shellfish derived Allergy Intermediate throat Verified 11/27/23 15:51 edema codeine Allergy Unknown Verified 11/27/23 15:51 crab Allergy Hives Verified 11/27/23 15:51 Home Medications Medication Instructions Recorded Confirmed Type allopurinol 300 mg tablet 300 mg PO QPM 11/27/23 11/27/23 History apixaban 5 mg tablet (Eliquis) 5 mg PO BID 11/27/23 11/27/23 History cetirizine 10 mg tablet (Zyrtec) 10 mg PO DAILY 11/27/23 11/27/23 History empagliflozin 10 mg tablet 1 mg PO QAM 11/27/23 11/27/23 History (Jardiance) escitalopram oxalate 20 mg tablet 20 mg PO QAM 11/27/23 11/27/23 History fluticasone propionate 50 1 spray intranasal DAILY 11/27/23 11/27/23 History mcg/actuation nasal spray,suspension (Flonase Allergy Relief) ibuprofen 200 mg tablet (Advil) 100 - 200 mg PO DAILY 11/27/23 11/27/23 History metoprolol succinate 50 mg 50 mg PO QAM 11/27/23 11/27/23 History tablet,extended release 24 hr propylene glycol 0.6 % eye drops 1 drp ophthalmic (eye) DIRECTED 11/27/23 11/27/23 History (Systane Complete) PRN Dry Eyes sacubitril 24 mg-valsartan 26 mg 1 tab PO BID 11/27/23 11/27/23 History tablet (Entresto) simvastatin 20 mg tablet 20 mg PO QPM 11/27/23 11/27/23 History spironolactone 25 mg tablet 25 mg PO QAM 11/27/23 11/27/23 History Patient History Medical History (Updated 11/28/23 @ 09:22 by Eliud Cole MD) Dry eyes Depression History of stroke Atrial fibrillation CHF (congestive heart failure) Social History Smoking Status: Never smoker Hx Alcohol Use: No Hx Substance Use: No Preferred Language: Persian Communication Ability: Effective Bulk Filler Required: No Beliefs That Will Affect Care: None Current Living Situation: Spouse and Family Current Living Situation Comment: Son is home at this time. Other Information That Helps Us Care for You: No Feels Safe at Home: Yes Safety Concerns: Feels Safe At This Time Assistive Devices: Glasses Review of Systems Constitutional: no fever and no chills Eyes: no blind spots and no diplopia Ear, Nose, Mouth, Throat: no hearing loss Respiratory: no cough and no dyspnea Cardiovascular: + palpitations; no chest pain Gastrointestinal: no nausea and no vomiting Genitourinary: no urinary incontinence Musculoskeletal: no neck pain and no myalgia Integumentary: no rash and no lesions Neurologic: as per Subjective / HPI and + abnormal speech; no localized weakness, no tremor(s), no syncope, no headache(s), no confusion and no memory loss Psychiatric: no depression and no anxiety Hematologic / Lymphatic: no easy bleeding and no easy bruising Exam (Neuro) Constitutional: well developed and well nourished; no acute distress Eyes: normal visual wilde by confrontation, PERRL and EOM intact bilaterally; no nystagmus Neurologic: Oriented to:: Person, Place and Time Memory: Short Term Intact and Remote Intact Attention: Span Intact and Concentration Intact Speech Fluency: negative Dysarthria or Dysfluency Speech Aphasia: negative Aphasia Fund of Knowledge: Current Events, Past History and Vocabulary Cranial Nerves: Normal II, III, IV, , V, VII, VIII, IX, X, XI and XII Motor Strength: Normal Lower Extremities and Normal Upper Extremities Motor Tone: Normal Lower Extremities and Normal Upper Extremities Muscle Bulk/Involuntary Movements: No Involuntary Movements; negative Muscle Atrophy Sensation: Light Touch Intact, Pain/Temperature Intact and Proprioception Intact Coordination: Normal; negative Limited Balance, Dysdiadochokinesia, Finger-Nose Abnormal or Heel-Calloway Abnormal Deep Tendon Reflexes: Rt Triceps: 1+, Lt Triceps: 1+, Rt Biceps: 1+, Lt Biceps: 1+, Rt Brachioradialis: 1+, Lt Brachioradialis: 1+, Rt Patellar: 1+, Lt Patellar: 1+, Rt Ankle: 1+ and Lt Ankle: 1+ Special Tests: negative Babinski Present Details: gait not tested Results & Data Vital Signs (Past 12 Hours) Vital Signs Temp Pulse Resp BP Pulse Ox O2 Del Method 11/28/23 07:35 36.3 C L 83 20 102/70 93 Nasal CPAP 11/28/23 03:20 36.5 C 76 17 95/59 L 92 CPAP 11/27/23 23:21 36.6 C 75 16 92/55 L 96 CPAP Laboratory Results WBC 7.63, hemoglobin 16.3, hematocrit 48.0, platelet count 144, sodium 139, potassium 4.5, BUN 19, creatinine 1.28, glucose 96, hemoglobin A1c 5.8, AST 19, ALT 23, triglycerides 154, cholesterol 124, LDL 59, HDL [address] of the head including CTA of the head and neck are as described in the HPI, I independently reviewed these images. An electrocardiogram revealed a heart rate of 73 bpm, undefined rhythm (A-fib?) Coding Level of Care Code 43301 INT INP/OBS CARE MIN Diagnoses Stroke-like symptoms R29.90 Complicated migraine G43.109 Time Spent (min) 80
--- NOTE | 2023-11-28 09:05 | Hospitalist Progress Note ---
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 Continue simvastatin Speech therapy consulted PT/OT consulted Neurology consulted, rcommendation to hold Plavix load given the patient is on Eliquis(currently not on an antiplatelet drug) Left thalamic CVA in 2011 Per patient's , he was on Plavix temporarily in 2011, however this was discontinued when he started on Eliquis (2) CHF (congestive heart failure): Plan: Echocardiogram , suspect chronic systolic heart faiure or HF improved EF Continue Entresto, Jardiance, spironolactone (3) Atrial fibrillation: Plan: Pacemaker placed in November 2022, per patient EKG seems like afib controlled V Rate (4) Depression: Plan: Continue escitalopram (5) Dry eyes: Plan: Continue Systane drops as needed Plan Full code Admission and Anticipated Discharge Date Admission Date: November 27, 2023 Results & Data Results & Data Vital Signs (Past 12 Hours) Vital Signs Temp Pulse Resp BP Pulse Ox O2 Del Method 11/28/23 07:35 97.3 F L 83 20 102/70 93 Nasal CPAP 11/28/23 03:20 97.7 F 76 17 95/59 L 92 CPAP 11/27/23 23:21 97.9 F 75 16 92/55 L 96 CPAP PG Care Time/CCT Total # of Minutes Spent Total Time Spent with Patient: Total time spent is greater than 50% in coordination of care (as documented) at patient's floor/unit and/or counseling patient: Coding Diagnoses Stroke-like symptoms R29.90 CHF (congestive heart failure) I50.9 Atrial fibrillation I48.91 Depression F32.A Dry eyes H04.123
[2023-11-28] MEDS: VALSARTAN/SACUBITRIL 26/24MG TAB PO SCH (09:24)
[2023-11-28] MEDS: EMPAGLIFLOZIN 10 MG TAB PO SCH (09:26)
[2023-11-28] MEDS: ESCITALOPRAM OXALATE 20 MG TAB PO SCH (09:26)
[2023-11-28] MEDS: SPIRONOLACTONE 25 MG TAB PO SCH (09:26)
[2023-11-28] MEDS: CETIRIZINE HCL 10 MG TABLET PO SCH (09:26)
[2023-11-28] MEDS: FLUTICASONE PROPIONATE NA SPR 16 GM BTL SCH (09:27)
[2023-11-28] MEDS: METOPROLOL SUCC 50MG EXT REL TAB PO SCH (09:28)
--- NOTE | 2023-11-28 10:35 | Pharmacy Report ---
- Date of Service November 28, 2023 - Pharmacy CVA/TIA Medication Review Medications to Prevent Stroke handout has been added to the patients discharge packet. Antiplatelet(s) * Antiplatelet therapy deferred per Neurology due to patient currently on Eliquis. MRI could not be completed due to pacemaker. Cholesterol * High intensity statin deferred due to lipids well controlled on Simvastatin 20 mg (moderate intensity statin). Per Neurology note, continue Simvastatin since LDL = 59 (<70). DVT Prophylaxis * Patient on Eliquis 5 mg BID Therapeutic Anticoagulation * Hx Afib/Aflutter noted, and patient on Eliquis 5 mg BID Type 2 Diabetes * Patient does not have T2DM
--- NOTE | 2023-11-28 13:53 | CT Scan Report ---
CT head/brain wo con CLINICAL HISTORY: 68 years-old Male with STROKE LIKE SX COMPARE CANNOT DO mri. Acute stroke like sym ptoms TECHNIQUE: Multiple axial CT images of the head were obtained without contrast. A dose lowering tech nique was utilized adhering to the principles of ALARA. CT DOSE: 625.8 mGy.cm COMPARISON: 11/27/2023 FINDINGS: No acute intracranial hemorrhage, midline shift, intracranial mass, hydrocephalus, territorial ischem ia or abnormal extra-axial collection. Basal ganglia and dentate nuclei calcifications redemonstrated . Mild involutional changes with suggestion of mild chronic microvascular ischemic disease. The calvarium is intact. Right-sided scleral banding. The paranasal sinuses, mastoid air cells, and m iddle ear cavities are clear. IMPRESSION: No acute intracranial abnormality. ACT 112: Negative or not required by law. The above report was generated using voice recognition software. It may contain grammatical, syntax o r spelling errors. Electronically signed by: Flynn Garcia M.D. 11/28/2023 1:52 PM
[2023-11-28] MEDS ORDERED: STROKE PATIENT DISCHARGE STA (14:50)
[2023-11-28] MEDS: APIXABAN 5 MG TABLET PO SCH (15:10)
[2023-11-28] MEDS: CLOPIDOGREL BISULFATE 75 MG TAB PO ONE (15:36)
--- NOTE | 2023-11-28 16:15 | XCELERA ---
[id number]
--- NOTE | 2023-11-28 16:27 | Discharge Summary ---
Date of Service November 28, 2023 Admission HPI Per Admitting Provider Chong is a pleasant 68-year-old male with PMH of left thalamic CVA in 2011 (with residual right-sided deficits), CHF, atrial fibrillation, depression, gouty arthritis, dry eyes, and HLD. He is presented for strokelike symptoms that developed on 11/27. Patient was in the passenger seat, driving with his (Nydia) to a in [place], when he developed a visual aura, followed by slower, slurred speech and expressive aphasia around 1100 on 11/27. He reports that he could not remember things, such as the name of his doctor. When EMS arrived, he also noted that he was using the wrong words (instead of saying he had a history of migraines, he said he had a history of "microwaves". Of note, patient had a left thalamic stroke in 2011 with residual left facial droop and right-sided neuropathy. He denies any recent injuries to the head or neck. He denies tobacco use, alcohol use, and recreational drug use. Hx of retinal detachment in right eye. Hx of migraines with aura; patient does not take med ications for this, when they come on he says he drinks black coffee and lays down for an hour until they pass. Patient was recently sick with a stomach bug up until Saturday 11/25; he had a low-grade fever (and took some Tylenol) as well as diarrhea which has resolved. Patient worked out yesterday for the first time in a month; walking on a treadmill. He took all of his regular morning medications. No recent change in medications; most recent change was decreasing metoprolol from 100 mg to 50 mg in February 2023 due to dizzy spells. Patient had a pacemaker placed in November 2022, with Dr. Luanne Estrada (electrophysiology). His PCP is Yovanny Watson at [facility]. Patient has been hypotensive in the ED; vitals otherwise stable. ED course: Benadryl 25 mg IV Prochlorperazine 10 mg IV NSS 1000 mL IV ROS: Patient endorses RHODES (like a migraine aura), aura, confusion, L facial droop (which may be residual from last stroke), R-sided numbness/tingling (residual from prior stroke), diarrhea (resolved). Patient denies fever, chills, nightsweats, fainting, neck stiffness, cough, congestion, loss of vision, change in hearing, chest pain, chest palpitations, SOB, cough, abdominal pain, N/V, dysuria, burning with urination, no pain in right/left UE or LE. PMHx: Patient endorses hx of migraines with aura, Marfan's syndrome, and CVA Patient denies SC, DVT/PE, diabetes, or cancer Principal Diagnosis reversible neurological deficit, suspect TIA, OR atypical migraine Discharge Exam Pt has slow methodical speech but is intact no focal neurological deficit cardiac is regular no murmur Discharge Data Allergies Allergy/AdvReac Type Severity Reaction Status Date / Time shellfish derived Allergy Intermediate throat Verified 11/27/23 15:51 edema codeine Allergy Unknown Verified 11/27/23 15:51 crab Allergy Hives Verified 11/27/23 15:51 Consultations 11/27/23 20:30 Consult Neurology Routine 11/28/23 14:54 Burn CD for patient Routine Ordered Studies 11/27/23 12:30 CT angio head w con Stat CT angio neck with con Stat CT head/brain wo con Stat 11/28/23 13:00 CT head/brain wo con Routine Hospital Course (1) Stroke-like symptoms: Visual aura, worsening slurred speech, and expressive aphasia developed around 1100 on 11/27 Pt with a history of migraines Not a TNKase candidate per tele stroke consult given on Eliquis, and symptoms rapidly resolving Head CT revealed NAF Head/neck CTA unremarkable Brain MRI ordered, cannot perform due to patient's pacemaker Echocardiogram with bubble study shows EF 45-50%, no shunt noted repeat CT head was done as AICD is not compatible with our MRI, showing no acute injuries will start Plavix 75 mg daily for 3 weeks and recommend referral to neurology as an outpt (along with apixaban for afib) Hx of left thalamic CVA in 2011 (per patient), 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 remains Continue simvastatin, consider discussion of high potency statin with primary care Left thalamic CVA in 2011 Per patient's , he was on Plavix temporarily in 2011, however this was discontinued when he started on Eliquis however if this is considered to be a reversible neurologic event, will need antiplatelet and will Rx 21 d of plavix pending further consult with outpt neurology there could still be consideration of atypical migraine (2) CHF (congestive heart failure): Echocardiogram , suspect chronic systolic heart faiure / HF improved EF as was stared on entresto, now EF is 45-50% Continue Entresto, Jardiance, spironolactone pt not in acute heart failure during this hospitilization (3) Atrial fibrillation: Pacemaker placed in November 2022, per patient EKG seems like afib controlled V Rate did interrogate pacemaker but report is not available at time of discharge, will expect [employer] to get 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 Discharge Plan Discharge Items Patient Disposition: Home - Self-Care Reason For Visit: STROKE-LIKE SYMPTOMS, EXPRESSIVE APHASIA Discharge Diagnosis: reversible neurological deficit Activity: Per Instructions section Non-emergency contact: Primary Care Provider Call non-emergency contact if: your symptoms worsen Follow-up/Referrals: YOVANNY WATSON [Other] (I contacted PCP to schedule f/u; however, their system is currently down. Their office will reach out to you directly to schedule. Thank y ou!) Diet: Regular Addtl Attending Provider Instructions: Risk Factors for Stroke: You can reduce your chances of stroke by working with your medical provider to adopt a healthy lifestyle. Some specific ways to lower your chance of stroke are: * If you are a smoker, now is the time to stop smoking cigarettes * If you are diabetic, improve the control of your blood sugars * Avoid excessive amounts of alcohol * Control high blood pressure * Lose weight if you are overweight * Be sure to lead an active lifestyle * Eat a healthy diet low in salt, cholesterol and fat You should know about other risk factors for stroke that you are unable to control. These include: * Age 55 years or older * Male gender * Certain racial groups: , or / * Family History of Stroke, Mini stroke or Heart Attack * Sickle Cell Disease Follow Up: It is important for you to keep your follow up appointments with your medical provider. Who to Call and When: Medical Emergencies: Call 911 immediately if you experience any of the following warning signs and symptoms of Stroke: * Sudden numbness or weakness of the face, arm or leg, especially on one side of the body * Sudden confusion, trouble speaking or understanding * Sudden trouble seeing in one or both eyes * Sudden trouble walking, dizziness, loss of balance or coordination * Sudden severe headache with no cause Do not delay calling 911 if you experience any warning signs or symptoms of a stroke. Delay in seeking medical attention may affect what treatments can be given to you. . Addtl Plant Utility Person Provider Instructions: this may have been a complicated migraine without headache, please ask Dr Watson to follow up with you and consider a neurologic consult please stop ibuprofen while on plavix Pending Studies at Discharge: No Stand-Alone Forms: My [facility], Smoking Cessation Medications and DC Order Prescriptions: New clopidogrel [Plavix] 75 mg tablet 75 mg PO DAILY Qty: 21 0RF Continued cetirizine [Zyrtec] 10 mg Tablet 10 mg PO DAILY metoprolol succinate 50 mg tablet extended release 24 hr 50 mg PO QAM spironolactone 25 mg tablet 25 mg PO QAM simvastatin 20 mg tablet 20 mg PO QPM allopurinol 300 mg tablet 300 mg PO QPM fluticasone propionate [Flonase Allergy Relief] 50 mcg/actuation Curlew,Suspension 1 spray INTRANASAL DAILY Rx Instructions: administer into each nostril escitalopram oxalate 20 mg tablet 20 mg PO QAM Systane Complete 0.6 % Drops 1 drp OPHTHALMIC (EYE) DIRECTED PRN (Reason: Dry Eyes) Eliquis 5 mg tablet 5 mg PO BID Jardiance 10 mg tablet 1 mg PO QAM Entresto 24-26 mg tablet 1 tab PO BID Discontinued ibuprofen [Advil] 200 mg Tablet 100 - 200 mg PO DAILY Discharge Orders: Discharge Order (Routine); Ordered 11/28/23 Ordered By: Sancho Perez Admission Data Admit Date/Time: 11/27/23 15:39 Attending Provider: Sancho Perez Admit Provider: Sriram Gtz Primary Care Provider: YOVANNY WATSON Other Providers: Eliud Cole Other Interventions: Discharge Summary Assessment (RN) Last Done: 11/28/23 15:52 Coding Level of Care Code 70513 INP/OBS DISCH >30 MIN Diagnoses Stroke-like symptoms R29.90 CHF (congestive heart failure) I50.9 Atrial fibrillation I48.91 Depression F32.A Dry eyes H04.123
--- NOTE | 2023-11-29 21:45 | Electrocardiogram Report ---
Test Reason : Blood Pressure : / mmHG Vent. Rate : 073 BPM Atrial Rate : 000 BPM P-R Int : 000 ms QRS Dur : 098 ms QT Int : 414 ms P-R-T Axes : 000 -18 164 degrees QTc Int : 456 ms Atrial fibrillation Inferior infarct , age undetermined Anteroseptal infarct , age undetermined T wave abnormality, consider lateral ischemia Abnormal ECG No previous ECGs available Confirmed by Kavon Jose ([id number]) on 11/29/2023 9:45:14 PM Referred By: Confirmed By:Kavon Jose
== END 2023-11-28 17:01 | disposition home or self-care (01) | DRG 69 ==
LOC: ED 12:37 → 4W 15:39 → SUATTDRO 15:39 → INTOOBSV 15:39 → 4W 16:25